=== PATIENT | female | born 1950 | race Caucasian/White ===

== ENCOUNTER 2018-06-15 09:43 | Emergency (ER) | payer MEDICARE ==
[~2018-06-15] VITALS: Ht 165.1 cm; Wt 74.8 kg
[2018-06-15] MEDS ORDERED: SIMVASTATIN5 MG PO (09:59)
--- NOTE | 2018-06-16 12:00 | EKG ---
[facility] [address] [facility] [place] [address] Signed Sinus bradycardia Possible Left atrial enlargement Cannot rule out Anterior infarct (cited on or before 15-JUN-2018) Abnormal ECG When compared with ECG of 15-JUN-2018 09:45, (Unconfirmed) Sinus rhythm has replaced Atrial fibrillation Vent. rate has decreased BY 49 BPM Confirmed by THUAN PIERCE MD ([id number]) on 06/16/2018 12:00:03 PM Electronically Signed By: THUAN PIERCE MD 06/16/18 1200 PATIENT NAME: SHEN HERNANDEZ Electrocardiogram DATE OF : 54 PHYSICIAN: THUAN PIERCE MD REPORT #: [id number] REPORT IS CONFIDENTIAL AND NOT TO BE RELEASED WITHOUT AUTHORIZATION
--- NOTE | 2018-06-16 12:00 | EKG ---
[facility] [address] [facility] [place] [address] Signed Atrial fibrillation with rapid ventricular response Cannot rule out Anterior infarct , age undetermined Abnormal ECG No previous ECGs available Confirmed by THUAN PIERCE MD ([id number]) on 06/16/2018 11:59:51 AM Electronically Signed By: THUAN PIERCE MD 06/16/18 1200 PATIENT NAME: SHEN HERNANDEZ Electrocardiogram DATE OF : 54 PHYSICIAN: THUAN PIERCE MD REPORT #: [id number] REPORT IS CONFIDENTIAL AND NOT TO BE RELEASED WITHOUT AUTHORIZATION
== END 2018-06-15 13:01 | disposition home or self-care (01) ==
LOC: ED 09:43
DX: I48.91 Unspecified atrial fibrillation (principal); Z79.899 Other long term (current) drug therapy
CPT/HCPCS: 71046; 80053; 83880; 84484; 85025; 85379; 93005; 93010; 99285; J2704